=== PATIENT | female | born 1965 | race Caucasian/White ===

== ENCOUNTER 2017-09-15 23:48 | Observation (INO) | payer OTHER ==
--- NOTE | 2017-09-16 00:16 | EDPHY ---
H & P Stated Complaint: L side back & butt hurting Time Seen by Provider: 09/16/17 00:16 HPI/ROS: HPI CHIEF COMPLAINT: Low back pain. HISTORY OF PRESENT ILLNESS: Patient 52-year-old female she presents emergency room with low back pain. Patient states she has had intermittent low back pain for the past year. However it has progressively got worse. She presents emergency room by private vehicle she states she is rather severe left low back pain. It is particularly in the lumbar region that radiates down her left gluteus. Sometimes goes into her left thigh. She states she is having trouble walking due to the pain. She denies any saddle anesthesia. She denies bowel bladder incontinence. Patient denies any chest pain or shortness of breath. Denies fever. She lives outside [place] however her daughter is here in [place]. She staying with a friend. Past Medical History: History of ulcer colitis, multiple abdominal surgeries, cardiac arrest Past Surgical History: Ulcerative, with multiple abdominal surgeries Social History: Noncontributory Family History: Noncontributory ROS REVIEW OF SYSTEMS: A comprehensive 10 point review of systems is otherwise negative aside from elements mentioned in the history of present illness. Exam Constitutional triage nursing summary reviewed, vital signs reviewed, awake/ alert. Eyes normal conjunctivae and sclera, EOMI, PERRLA. HENT normal inspection, atraumatic, moist mucus membranes, no epistaxis, neck supple/ no meningismus, no raccoon eyes. Respiratory clear to auscultation bilaterally, normal breath sounds, no respiratory distress, no wheezing. Cardiovascular rate normal, regular rhythm, no murmur, no edema, distal pulses normal. Gastrointestinal soft, non-tender, no rebound, no guarding, normal bowel sounds, no distension, no pulsatile mass. Genitourinary no CVA tenderness. Musculoskeletal no midline lumbar back pain however complains of pain radiating from her paravertebral region left-sided lumbar down her left gluteus full range of motion, no calf swelling, no tenderness of extremities, no meningismus , good pulses, neurovascularly intact. Skin pink, warm, & dry, no rash, skin atraumatic. Neurologic awake, alert and oriented x 3, AAOx3, moves all 4 extremities equally, motor intact, sensory intact, CN II-XII intact, normal cerebellar, normal vision, normal speech. Psychiatric normal mood/affect. Heme/Lymph/Immune no lymphadenopathy. Differential Diagnosis: Includes but is not limited to in a particular order lumbar strain, disc herniation, nerve root compression, annular tear, vertebral compression fracture. Medical Decision Making: Plan for this patient x-ray lumbar spine, IV Dilaudid 0.5 mg for pain control, IV Zofran for nausea, 1 L normal saline. Basic blood work and UA. Re-evaluate. Re-evaluation: 0156: X-ray lumbar spine shows no evidence of acute fracture malalignment. This image was interpreted by myself. 0204: Try to ambulate patient the bathroom however she has great difficulty with pain down her left leg. Given this pain I have ordered her Toradol 15 mg IV, Decadron 10 mg IV, Valium 2.5 mg IV for spasm see if this improves. Given this patient's having intractable back pain despite efforts in the emergency room to make her feel better she is unable to walk. Should be admitted to the hospitalist service for further care of this. PT to evaluate. Source: Patient - Personal History LMP (Females 10-55): Post Menopausal Current Tetanus/Diphtheria Vaccine: Unsure Current Tetanus Diphtheria and Acellular Pertussis (TDAP): Unsure - Medical/Surgical History Hx Asthma: No Hx Chronic Respiratory Disease: No Hx Diabetes: No Hx Cardiac Disease: No Hx Renal Disease: No Hx Cirrhosis: No Hx Alcoholism: No Hx HIV/AIDS: No Hx Splenectomy or Spleen Trauma: No Other PMH: UC, colon & intestines removed, - Social History Smoking Status: Never smoked Constitutional: Initial Vital Signs Temperature (C) 36.9 C 09/15/17 23:52 Heart Rate 71 09/15/17 23:52 Respiratory Rate 16 09/15/17 23:52 Blood Pressure 113/82 H 09/15/17 23:52 O2 Sat (%) 97 09/15/17 23:52 O2 Delivery Mode Nasal Cannula O2 (L/minute) 2 Allergies/Adverse Reactions: No Known Allergies Allergy (Unverified 09/15/17 23:55) Home Medications: Medication Instructions Recorded Acetaminophen [Tylenol 325mg (*)] 650 mg PO Q4HRS PRN tab 09/16/17 Cetirizine [ZyrTEC 10 mg (*)] 10 mg PO DAILY 09/16/17 Cyclobenzaprine [Flexeril 10 MG 10 mg PO TID PRN #10 tab 09/16/17 (*)] Lidocaine 4%/Menthol 1% [Icy Hot 1 patch TD DAILY patch 09/16/17 Lidocaine/Menthol 4%/1% Patch (*)] Loteprednol Etabonate [Alrex] 1 drop EACHEYE DAILY 09/16/17 Montelukast Sodium [Singulair 10 10 mg PO DAILY@1800 09/16/17 mg (*)] Patch Removal 1 ea TD DAILY21 patch 09/16/17 cycloSPORINE 0.05% [Restasis Opht 1 drop EACHEYE BID 09/16/17 Drops(*)] Medical Decision Making - Data Points Laboratory Results: Laboratory Results 09/16/17 00:25 09/16/17 00:25 Medications Given: Discontinued Medications Cyclobenzaprine HCl (Flexeril) 10 mg PO TID PRN PRN Reason: Spasms Stop: 03/15/18 08:59 Last Admin: 09/16/17 06:08 Dose: 10 mg Dexamethasone (Decadron Injection) 10 mg IVP EDNOW ONE Stop: 09/16/17 02:05 Last Admin: 09/16/17 02:08 Dose: 10 mg Diazepam (Valium) 2.5 mg IVP EDNOW ONE Stop: 09/16/17 02:05 Last Admin: 09/16/17 02:08 Dose: 2.5 mg Hydromorphone HCl (Dilaudid) 0.5 mg IVP EDNOW ONE Stop: 09/16/17 00:47 Last Admin: 09/16/17 00:50 Dose: 0.5 mg Sodium Chloride (Ns) 1,000 mls @ 0 mls/hr IV EDNOW ONE; Wide Open PRN Reason: Protocol Stop: 09/16/17 00:47 Last Admin: 09/16/17 00:50 Dose: 1,000 mls Ketorolac Tromethamine (Toradol) 15 mg IVP ONCE ONE Stop: 09/16/17 02:05 Last Admin: 09/16/17 02:08 Dose: 15 mg Ketorolac Tromethamine (Toradol) 15 mg IVP Q6HRS NANETTE Stop: 09/21/17 05:59 Last Admin: 09/16/17 12:09 Dose: 15 mg Miscellaneous Medication (Icy Hot Lidocaine/Menthol 4%/1% Patch) 1 patch TD DAILY NANETTE Stop: 03/15/18 08:59 Last Admin: 09/16/17 11:04 Dose: 1 patch Ondansetron HCl (Zofran) 4 mg IVP EDNOW ONE Stop: 09/16/17 00:47 Last Admin: 09/16/17 00:50 Dose: 4 mg Departure - Departure Disposition: [facility] Inpatient Acute Clinical Impression: Back pain Qualifiers: Back pain location: low back pain Chronicity: acute Back pain laterality: left Sciatica presence: with sciatica Sciatica laterality: sciatica of left side Qualified Code(s): M54.42 - Lumbago with sciatica, left side Condition: Good
[2017-09-16] MEDS ORDERED: HYDROmorphONE/DILAUDID 2 MG/ML INJ IVP ONE (00:46)
[2017-09-16] MEDS ORDERED: ONDANSETRON 4 MG/2 ML VIAL IVP ONE (00:46)
[2017-09-16] MEDS ORDERED: NS 1,000 ML IV ONE (00:46)
[2017-09-16 00:53] LABS: PLATELET COUNT 434 10^3/uL (150-400)
[2017-09-16] MEDS ORDERED: KETOROLAC 15 MG/1 ML SDV IVP ONE (02:04)
[2017-09-16] MEDS ORDERED: DIAZEPAM 5 MG/ML 1 ML SYR IVP ONE (02:04)
[2017-09-16] MEDS ORDERED: DEXAMETHASONE 10 MG/ML VIAL IVP ONE (02:04)
[2017-09-16] MEDS ORDERED: ONDANSETRON 4 MG/2 ML VIAL IVP PRN (05:13)
[2017-09-16] MEDS ORDERED: ACETAMINOPHEN 325 MG TAB PO PRN (05:13)
[2017-09-16] MEDS ORDERED: diphenhydrAMINE 25 MG CAP PO PRN (05:13)
[2017-09-16] MEDS ORDERED: CYCLOBENZAPRINE 10 MG TAB PO PRN (05:17)
[2017-09-16] MEDS: KETOROLAC 15 MG/1 ML SDV IVP SCH ×2 (06:03→12:09)
--- NOTE | 2017-09-16 07:18 | PDGENHP ---
History and Physical - Chief Complaint Acute on chronic back pain - History of Present Illness Source-patient provides history appears reliable. EMR was reviewed and case discussed with ED provider. HPI-this is a pleasant 52-year-old female with past medical history significant for chronic low back pain, history of ulcerative colitis status post total colectomy and reanastomosis, medication related esophagitis who presents to the emergency department this morning with complaints of intractable low back pain. Patient reports that for the past 8 months she has had low back pain with radiating symptoms intermittently for down her gluteus to just behind her knee. She denies any history recent or remote of a injuries or falls. Patient reports that she has been having at worsening lower extremity weakness and difficulties ambulating. Patient traveled from [place] to be closer to her children who were away at camp. She states that she had difficulties walking due to her pain but was able to drive. She normally has available ibuprofen 800 mg p.r.n.. She does have a history of on using physical therapy and receiving IM injections of Toradol on outpatient basis with some amount of improvement but has not done so in some time. Additionally patient reports that her pain had been intermittent and she is not sure what may have triggered this episode. Patient denies any urinary or fecal retention or incontinence. Patient denies any saddle anesthesia. Patient denies any fevers or chills. 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 History Information - Allergies/Home Medication List Allergies/Adverse Reactions: No Known Allergies Allergy (Unverified 09/15/17 23:55) I have personally reviewed and updated: family history, medical history, social history, surgical history - Past Medical History Additional medical history: Chronic low back pain, ulcerative colitis status post colectomy, cardiac arrest, esophagitis, remote hx GIB. - Surgical History Additional surgical history: total colectomy with secondary re-anastamosis - Family History Additional family history: denies autoimmune, IBD, son with DM I. - Social History Smoking Status: Never smoked Alcohol Use: None Drug Use: None Additional social history: Patient lives in [place]. Cor status-full. Review of Systems Review of Systems: ROS: 10pt was reviewed & negative except for what was stated in HPI & below Constitutional: Reports: chills (patient reports she is chronically cold.), fever, other (No sweats) EENMT: Reports: no symptoms Cardiac: Reports: no symptoms Respiratory: Reports: no symptoms Gastrointestinal: Reports: abdominal pain (Chronic abdominal pain.). Denies: black stools, blood streaked stools, diarrhea, nausea Genitourinary: Reports: no symptoms Muscolosketal: Reports: back pain, muscle pain. Denies: joint pain Skin: Reports: no symptoms Neurological: Reports: numbness, tingling (Left leg), weakness (Bilateral lower extremity weakness.). Denies: tremors Hematologic/Lymphatic: Reports: no symptoms Physical Exam Physical Exam: Temp Pulse Resp BP Pulse Ox 36.5 C 56 L 18 96/59 L 100 09/16/17 04:50 09/16/17 04:50 09/16/17 04:50 09/16/17 04:50 09/16/17 04:50 O2 (L/minute) 2 Selected Entries 09/15/17 23:52 Blood Pressure Automatic Method Heart Rate 71 Respiratory 16 Rate O2 Sat (%) 97 Temperature (C) 36.9 C Blood Pressure 113/82 H Mean Arterial 92 Pressure (MAP) O2 Delivery Room Air Mode Temperature Oral Source Constitutional: no apparent distress, other (NAD. Pleasant) Eyes: PERRL, EOMI, No scleral injection Ears, Nose, Mouth, Throat: moist mucous membranes, No poor dentition Cardiovascular: regular rate and rhythym, no murmur, rub, or gallop, pulses symmetric bilaterally, No edema Peripheral Pulses: 2+: dorsalis-pedis (R), dorsalis-pedis (L) Respiratory: no respiratory distress, no rales or rhonchi, clear to auscultation , No expiratory wheeze, No inspiratory crackles Gastrointestinal: normoactive bowel sounds, soft, non-tender abdomen, no palpable masses, No distension Genitourinary: no bladder fullness, no bladder tenderness Skin: warm, normal color, no rashes or abrasions Musculoskeletal: full muscle strength, generalized weakness (Patient reports generalized weakness lower extremities secondary to her pain. Noted on the right compared to the left for straight leg raise the patient is complaining of left-sided low back pain.), other (Positive cross leg test.), No no muscle tenderness, No joint tenderness Neurologic: AAOx3, sensation intact bilaterally, No numbness, No facial droop Psychiatric: interacting appropriately, not encephalopathic, thought process linear, anxious, No depressed Lab Data & Imaging Review 09/16/17 00:25 09/16/17 00:25 WBC 9.47 10^3/uL (3.80-9.50) 09/16/17 00:25 RBC 3.99 10^6/uL (4.18-5.33) L 09/16/17 00:25 Hgb 11.7 g/dL (12.6-16.3) L 09/16/17 00:25 Hct 35.4 % (38.0-47.0) L 09/16/17 00:25 MCV 88.7 fL (81.5-99.8) 09/16/17 00:25 MCH 29.3 pg (27.9-34.1) 09/16/17 00:25 MCHC 33.1 g/dL (32.4-36.7) 09/16/17 00:25 RDW 15.2 % (11.5-15.2) 09/16/17 00:25 Plt Count 434 10^3/uL (150-400) H 09/16/17 00:25 MPV 9.2 fL (8.7-11.7) 09/16/17 00:25 Neut % (Auto) 58.8 % (39.3-74.2) 09/16/17 00:25 Lymph % (Auto) 28.0 % (15.0-45.0) 09/16/17 00:25 [place] % (Auto) 7.9 % (4.5-13.0) 09/16/17 00:25 Eos % (Auto) 4.0 % (0.6-7.6) 09/16/17 00:25 Baso % (Auto) 0.8 % (0.3-1.7) 09/16/17 00:25 Nucleat RBC Rel Count 0.0 % (0.0-0.2) 09/16/17 00:25 Absolute Neuts (auto) 5.56 10^3/uL (1.70-6.50) 09/16/17 00:25 Absolute Lymphs (auto) 2.65 10^3/uL (1.00-3.00) 09/16/17 00:25 Absolute Monos (auto) 0.75 10^3/uL (0.30-0.80) 09/16/17 00:25 Absolute Eos (auto) 0.38 10^3/uL (0.03-0.40) 09/16/17 00:25 Absolute Basos (auto) 0.08 10^3/uL (0.02-0.10) 09/16/17 00:25 Absolute Nucleated RBC 0.00 10^3/uL (0-0.01) 09/16/17 00:25 Immature Gran % 0.5 % (0.0-1.1) 09/16/17 00:25 Immature Gran # 0.05 10^3/uL (0.00-0.10) 09/16/17 00:25 Sodium 145 mEq/L (135-145) 09/16/17 00:25 Potassium 4.4 mEq/L (3.3-5.0) 09/16/17 00:25 Chloride 104 mEq/L (97-110) 09/16/17 00:25 Carbon Dioxide 24 mEq/l (22-31) 09/16/17 00:25 Anion Gap 17 mEq/L (8-16) H 09/16/17 00:25 BUN 19 mg/dL (7-23) 09/16/17 00:25 Creatinine 0.9 mg/dL (0.6-1.0) 09/16/17 00:25 Estimated GFR > 60 09/16/17 00:25 Glucose 91 mg/dL (70-100) 09/16/17 00:25 Calcium 9.9 mg/dL (8.5-10.4) 09/16/17 00:25 Imaging Review: Lumbar spine plain film-report pending image reviewed. No acute findings. CT lumbar spine-preliminary Radiology report notes degenerative changes nothing acute. Visualized and Interpreted imaging results: Yes Assessment & Plan Assessment: 52-year-old female with history of chronic low back pain presents to the ED with complaints of acute on chronic pain and radicular symptoms on the left leg. #Intractable low back pain-reviewed imaging studies with the patient. She did receive Decadron, Valium, Toradol, Dilaudid and she reports that her symptoms appear to be slowly improving. Advised patient that will not use any more narcotic therapy. Will plan to continue anti inflammatories, muscle relaxants and on PT OT. Additionally have ordered for Lidoderm patch with menthol which patient appears to be quite interested in using as she has used Lidoderm patches in the past with success. Positive straight leg and cross leg testing however CT lumbar spine reported to be without any acute findings. Patient appears to be able to ambulate a little bit better. She does have specialist an [place]. She has no flag signs at this time and can likely follow up with her primary team as outpatient basis. PT OT consultation will await recommendations continued to encourage mobilization. Additionally I did provide patient warning regarding high-dose anti-inflammatory NSAID use and her remote history of GI bleeding which was related to postsurgical complications surrounding her colostomy/anastamosis. Patient should hold NSAID therapy for any development of abdominal pain, discomfort or GI bleeding. Patient does have outpatient prescription current by refer her report of 800 mg ibuprofen. She was advised to take with food. #sciatica - as above # anemia-likely of iron deficiency versus chronic disease. Patient reports some malabsorption since her total colostomy. She denies any melena or hematochezia. She should follow up with her primary care doctor and monitor for warnings regarding NSAID use as noted above. FEN - patient is status post IV fluid in the emergency department. Will encourage oral hydration. Electrolyte monitoring replacement if needed. Diet as tolerated. PPX-SCDs. Anticipate short hospital stay and early mobilization hold off on anticoagulation. Cor status-full Disposition-patient admitted observation status on the medical floor for further treatment of her intractable back pain and PT OT evaluation. If patient without any additional improvement may need to consider further assessment by neurosurgical services.
[2017-09-16] MEDS ORDERED: LIDOCAINE 4%/MENTHOL 1% PATCH TD SCH (09:00)
[2017-09-16 11:58] VITALS: BP 99/83
--- NOTE | 2017-09-16 13:13 | GDS ---
[f rep st] DISCHARGE SUMMARY DISCHARGE DIAGNOSIS: Low back pain. STUDIES AND PROCEDURES: CT of the lumbar spine. HOSPITAL COURSE: The patient's low back pain has resolved. She has worked well with physical therap y and occupational therapy. She will be discharged from the hospital to follow up in the outpatient setting as previously arranged. As far as her anemia and other conditions, she will follow up in the outpatient setting with her primary care physician. DISCHARGE MEDICATIONS: Please refer to EMR form. I have provided the patient a prescription for Fle xeril, and she will continue Lidoderm patch with menthol over the counter. I have discussed the joseline ent's disposition with the RN. /[id number]/MODL
[2017-09-16] MEDS ORDERED: MONTELUKAST SODIUM 10 MG TAB PO SCH (18:00)
--- NOTE | 2017-09-16 18:35 | ASMTLACE ---
LACE Length of stay for Answers: Less than 1 day current admission Acuity / Level of Answers: No Care: Did the patient have an inpatient admission? Comorbidities - select Answers: Opioid dependence all that apply / Chronic pain Other Notes: Caridac arrest, ulcerative colitis s/p total colectomy and reanastomosis # of Emergency department Answers: 1-2 visits in the last 6 months Score: 6 Date Signed: 09/16/2017 06:34 PM Electronically Signed By:Sandra Hart RN
--- NOTE | 2017-09-16 18:38 | ASDISCHSUM ---
Discharge Information Plan Status:Home with No Needs Medically Cleared to Leave:09/16/2017 Discharge Date:09/16/2017 05:15 PM CM D/C Disposition:Home, Routine, Self-Care ADT D/C Disposition:Home, Routine, Self-Care Projected Discharge Date:09/16/2017 05:15 PM Transportation at D/C:Family Discharge Delay Reason: Follow-Up Date:09/16/2017 05:15 PM Discharge Slot:2 - 12:01 pm - 18:00 pm Final Diagnosis:Low back pain, hx of ulcerative colitis s/p total colectomy and reanastomosis Placement Information Patient Contact Information Contact Name:MAGDALENA Relationship:Friend Address: Home Phone: City: [facility] Phone: [facility]/[employer] Code: Email: Financial Information Financial Class:Medicare Primary Plan Desc:MEDICARE OUTPATIENT Primary Plan Number:[id number] Secondary Plan Desc: Secondary Plan Number: Assessment Information LACE LACE Length of stay for Answers: Less than 1 day current admission Acuity / Level of Answers: No Care: Did the patient have an inpatient admission? Comorbidities - select Answers: Opioid dependence all that apply / Chronic pain Other Notes: Caridac arrest, ulcerative colitis s/p total colectomy and reanastomosis # of Emergency department Answers: 1-2 visits in the last 6 months Score: 6 Date Signed: 09/16/2017 06:34 PM Electronically Signed By:Sandra Hart RN [facility] Progress Note CM Note CM Note Notes: Reviewed chart. Pt admitted for low back pain. History includes chronic low back pain, ulcerative colitis s/p total colectomy and reanastomosis, cardiac arrest, esophagitis. Pt lives in [place]. Per MD notes, pt to discharge home independently with no identified needs. No IM signed, not applicable. Pt to follow up as directed. CM available for any further issues or concerns. Discharge Plan: Home independently Date Signed: 09/16/2017 06:37 PM Electronically Signed By:Sandra Hart RN Intervention Information
[2017-09-16] MEDS ORDERED: PATCH REMOVAL 1 EA PATCH TD SCH (21:00)
[2017-09-16] MEDS ORDERED: cycloSPORINE 0.05% 30 DROPERETTE/BOX EACHEYE SCH (21:00)
[2017-09-17] MEDS ORDERED: ENOXAPARIN 40 MG/0.4 ML SYR SC SCH (09:00)
[2017-09-17] MEDS ORDERED: LOTEPREDNOL ETABONATE EACHEYE SCH (09:00)
[2017-09-17] MEDS ORDERED: CETIRIZINE 10 MG TAB PO SCH (09:00)
== END 2017-09-16 17:15 | disposition home or self-care (01) ==
LOC: F3N 09-16 04:45
PROVIDERS: ADMIT Family Medicine; ATTEND Family Medicine
DX: M54.42 Lumbago with sciatica, left side (principal); D64.9 Anemia, unspecified; E86.9 Volume depletion, unspecified; Z87.19 Personal history of other diseases of the digestive system; Z86.74 Personal history of sudden cardiac arrest; Z90.49 Acquired absence of other specified parts of digestive tract
CPT/HCPCS: 72100; 72131; 97161; 97165; 97535; G0378; G8978; G8979; G8980; G8987; G8988; G8989; J1100; J1170; J1885; J2405; J3360; 96374